=== PATIENT | male | born 1960 | race Caucasian/White ===

== ENCOUNTER 2021-02-12 22:58 | Outpatient (CLI) | payer SELFPAY | END 2021-02-12 22:59 | disposition critical access hospital (66) | LOC: EMS 22:58 | DX: R41.82 Altered mental status, unspecified (principal); R25.1 Tremor, unspecified | CPT/HCPCS: A0425; A0427 ==

== ENCOUNTER 2021-02-12 23:33 | Emergency (ER) | payer SELFPAY ==
--- NOTE | 2021-02-12 23:39 | ED Physician Documentation ---
PD HPI ALTERED MENTAL STATUS - Stated complaint Stated Complaint: HYPOTHERMIA,AMS - History obtained from History obtained from: Patient (AMS but contributes to HPI late in stay (see MDM)), EMS - History of Present Illness Timing - onset: Unknown Quality / character: Less responsive Contributing factors: No: Anticoagulated, Diabetic, Cancer, COPD, New medication, Recent med change, Recent illness, Recent injury, Intoxicated, Substance abuse, Known psych illness, Known dementia Basline status: Alert and oriented X 3, Ambulatory, Independent Recently seen: Not recently seen - Additional information Additional information: BIBA, patient arrives too altered to contribute to HPI/ROS. Per EMS, patient was found down in his driveway unconscious and minimally responsive. He was found by son and patients roommate. Unknown downtime. Medics noted patients pupils were 3mm bilaterally. They administered 0.4mg narcan without change but they note mild improvement in alertness with second dose of 0.4mg narcan. EMS notes patient is hypothermic with temperature of around 32 Review of Systems Unable to obtain: Unresponsive (non verbal, follows one or two simple commands but even then not consistently) PD PAST MEDICAL HISTORY - Past Medical History Past Medical History: Yes Other Past Medical History: patient says he has ankylosing spondylitis although not clear how this diagnosis was made - Present Medications Home Medications: Ambulatory Orders Medication Instructions Recorded Confirmed No Known Home Medications 02/13/21 02/13/21 - Allergies Allergies/Adverse Reactions: Allergies Allergy/AdvReac Type Severity Reaction Status Date / Time No Known Drug Allergies Allergy Verified 02/12/21 23:58 - Living Situation Living Arrangement: reports: At home PD ED PE NORMAL - Vitals Vital signs reviewed: Yes - General General: No acute distress, Well developed/nourished, Other (nonverbal, hypokinetic, follows only one or two very simple commands, and only occasionally) - HEENT HEENT: Atraumatic, PERRL, Other (dry mucous membranes) - Neck Neck: No bony TTP (this was assessed when he was awake and alert and oriented x 3, late in ED stay) - Cardiac Cardiac: No murmur, Strong equal pulses - Respiratory Respiratory: No respiratory distress - Abdomen Abdomen: Soft, Non tender, Non distended - Derm Derm: Normal color, Other (core is cool to touch, limbs are cold to touch and blanched) - Extremities Extremities: No deformity, No tenderness to palpate, Normal ROM s pain - Neuro Eye Opening: To Voice Motor: Obeys Commands (few simple commands) Verbal: None GCS Score: 10 PD ED PE EXPANDED - Cardiac Cardiac: Tachy, Regular Rhythm Results - Vitals Vitals: Oxygen O2 Source Room air - Labs Labs: Laboratory Tests 02/12/21 02/13/21 02/13/21 00:30 00:21 00:21 WBC 17.5 H RBC 3.80 L Hgb 12.0 L Hct 37.3 L MCV 98.2 H MCH 31.6 H MCHC 32.2 RDW 13.2 Plt Count 246 MPV 10.5 Neut # (Auto) Not Reportable Lymph # (Auto) Not Reportable [place] # (Auto) Not Reportable Eos # (Auto) Not Reportable Baso # (Auto) Not Reportable Absolute Nucleated RBC Not Reportable Total Counted 100 Band Neuts % (Manual) 9 Abnorm Lymph % (Manual) 0 Metamyelocytes % 1 H Myelocytes % 1 H Nucleated RBC % Not Reportable Neutrophils # (Manual) 13.7 H Lymphocytes # (Manual) 3.0 Monocytes # (Manual) 0.5 Eosinophils # (Manual) 0.0 Basophils # (Manual) 0.0 Nucleated RBCs 1 Differential Comment MANUAL DIFFERENTIAL Platelet Estimate NORMAL (130-450,000) RBC Morph Micro Appear NORMAL APPEARANCE Sodium 134 L Potassium 3.8 Chloride 101 Carbon Dioxide 11 L* Anion Gap 22.0 H BUN 11 Creatinine 0.9 Estimated GFR (MDRD) 87 L Glucose 243 H Calcium 8.4 L Total Bilirubin 1.0 AST 161 H ALT < 10 L Alkaline Phosphatase 183 H Total Creatine Kinase 232 CK-MB (CK-2) Total Protein 6.4 L Albumin 2.9 L Globulin 3.5 Albumin/Globulin Ratio 0.8 L Lipase 314 H TSH Urine Color YELLOW Urine Clarity CLEAR Urine pH 6.0 Ur Specific [place] 1.025 Urine Protein 30 H Urine Glucose (UA) 250 H Urine Ketones 40 H Urine Occult Blood LARGE H Urine Nitrite NEGATIVE Urine Bilirubin NEGATIVE Urine Urobilinogen 0.2 (NORMAL) Ur Leukocyte Esterase NEGATIVE Urine RBC 0-5 Urine WBC 0-3 Ur Squamous Epith Cells RARE Squamous Urine Bacteria None Seen Urine Casts 11-25 Hyaline Casts Urine Mucus Few Strands Ur Microscopic Review INDICATED Urine Culture Comments NOT INDICATED Salicylates < 6.0 Urine Opiates Screen NEGATIVE Ur Oxycodone Screen NEGATIVE Urine Methadone Screen NEGATIVE Ur Propoxyphene Screen NEGATIVE Acetaminophen < 10 L Ur Barbiturates Screen NEGATIVE Ur Tricyclics Screen NEGATIVE Ur Phencyclidine Scrn NEGATIVE Ur Amphetamine Screen NEGATIVE U Methamphetamines Scrn NEGATIVE U Benzodiazepines Scrn NEGATIVE Urine Cocaine Screen NEGATIVE U Cannabinoids Screen NEGATIVE Ethyl Alcohol < 5.0 Serum Ketones 02/13/21 02/13/21 02/13/21 00:21 00:21 01:15 WBC RBC Hgb Hct MCV MCH MCHC RDW Plt Count MPV Neut # (Auto) Lymph # (Auto) [place] # (Auto) Eos # (Auto) Baso # (Auto) Absolute Nucleated RBC Total Counted Band Neuts % (Manual) Abnorm Lymph % (Manual) Metamyelocytes % Myelocytes % Nucleated RBC % Neutrophils # (Manual) Lymphocytes # (Manual) Monocytes # (Manual) Eosinophils # (Manual) Basophils # (Manual) Nucleated RBCs Differential Comment Platelet Estimate RBC Morph Micro Appear Sodium Potassium Chloride Carbon Dioxide Anion Gap BUN Creatinine Estimated GFR (MDRD) Glucose Calcium Total Bilirubin AST ALT Alkaline Phosphatase Total Creatine Kinase CK-MB (CK-2) 5.0 Total Protein Albumin Globulin Albumin/Globulin Ratio Lipase TSH 6.20 H Urine Color Urine Clarity Urine pH Ur Specific [place] Urine Protein Urine Glucose (UA) Urine Ketones Urine Occult Blood Urine Nitrite Urine Bilirubin Urine Urobilinogen Ur Leukocyte Esterase Urine RBC Urine WBC Ur Squamous Epith Cells Urine Bacteria Urine Casts Urine Mucus Ur Microscopic Review Urine Culture Comments Salicylates Urine Opiates Screen Ur Oxycodone Screen Urine Methadone Screen Ur Propoxyphene Screen Acetaminophen Ur Barbiturates Screen Ur Tricyclics Screen Ur Phencyclidine Scrn Ur Amphetamine Screen U Methamphetamines Scrn U Benzodiazepines Scrn Urine Cocaine Screen U Cannabinoids Screen Ethyl Alcohol Serum Ketones NEGATIVE 02/13/21 02:54 WBC RBC Hgb Hct MCV MCH MCHC RDW Plt Count MPV Neut # (Auto) Lymph # (Auto) [place] # (Auto) Eos # (Auto) Baso # (Auto) Absolute Nucleated RBC Total Counted Band Neuts % (Manual) Abnorm Lymph % (Manual) Metamyelocytes % Myelocytes % Nucleated RBC % Neutrophils # (Manual) Lymphocytes # (Manual) Monocytes # (Manual) Eosinophils # (Manual) Basophils # (Manual) Nucleated RBCs Differential Comment Platelet Estimate RBC Morph Micro Appear Sodium 138 Potassium 3.5 Chloride 107 Carbon Dioxide 19 L Anion Gap 12.0 BUN 11 Creatinine 0.6 Estimated GFR (MDRD) 138 Glucose 125 H Calcium 7.7 L Total Bilirubin AST ALT Alkaline Phosphatase Total Creatine Kinase CK-MB (CK-2) Total Protein Albumin Globulin Albumin/Globulin Ratio Lipase TSH Urine Color Urine Clarity Urine pH Ur Specific [place] Urine Protein Urine Glucose (UA) Urine Ketones Urine Occult Blood Urine Nitrite Urine Bilirubin Urine Urobilinogen Ur Leukocyte Esterase Urine RBC Urine WBC Ur Squamous Epith Cells Urine Bacteria Urine Casts Urine Mucus Ur Microscopic Review Urine Culture Comments Salicylates Urine Opiates Screen Ur Oxycodone Screen Urine Methadone Screen Ur Propoxyphene Screen Acetaminophen Ur Barbiturates Screen Ur Tricyclics Screen Ur Phencyclidine Scrn Ur Amphetamine Screen U Methamphetamines Scrn U Benzodiazepines Scrn Urine Cocaine Screen U Cannabinoids Screen Ethyl Alcohol Serum Ketones - Rads (name of study) CT head Radiology: Prelim report reviewed, See rad report CT neck Radiology: Prelim report reviewed, See rad report PD MEDICAL DECISION MAKING - ED course Complexity details: reviewed results, re-evaluated patient, considered differential, d/w patient ED course: observed for several hours in ED. NORMAN ackerman applied shortly after arrival and warmed saline given IV. He gradually but steadily improved in mentation, correlating with increasing temperature (0.5 - 1.0 c / hour, as measured by bladder core thermometry. Once he was AAOx3, he tells me that he had pulled into his driveway with groceries. He says he has chronic back problems due to spondylitis (per patient), and that when he got out of his van, his back pain was so bad that he had to lie down on the driveway. He eventually got back up and decided he would take a bag of groceries in with him, but he again had too much back pain to ambulate and found that he had to again lie down on the driveway. He says he banged his cane on the side of his van to try to get the attention of his roommate, which eventually had the intended effect. He says the roommate could not help patient up and into the house, and so he called patients son who had at least a [address]. It is not clear who called 911 and when they called, but patients narrative suggests patient spent an inordinate amount of time in the cold on the driveway and this could account for the hypothermia and proportional AMS (which also improved in proportion to raising temperatures in ED). Patient denies any new pain (has chronic back pain). He expresses BLE weakness that is not new. He was able to slowly ambulate in ED prior to d/c. I offered to provide him with a walker, which he declines, says his walking stick acts as a cane and has been reliable thus far. I reviewed his course in the ED with him and reviewed test results. I instructed him to follow up with his primary care provider for reevaluation as well as to discuss his chronic back pain and BLE weakness. Departure - Departure Disposition: 01 Home, Self Care Clinical Impression: Hypothermia Qualifiers: Encounter type: initial encounter Qualified Code(s): T68.XXXA - Hypothermia, initial encounter Condition: Good Instructions: ED Hypothermia Tx Follow-Up: Celina Schwarz MD [Provider Admit Priv/Credential] - Within 1 week Comments: As we discussed, you should seek follow up for your ongoing back problems and lower extremity weakness. Discharge Date/Time: 02/13/21 08:45
[2021-02-12] MEDS ORDERED: SODIUM CHLORIDE 0.9% 1,000 ML IV STA (23:44)
[2021-02-13 00:30] LABS: BASOPHILS % (AUTO) 0.6 %; EOSINOPHILS % (AUTO) 0.3 %; HCT - HEMATOCRIT 37.3 % (42.0-52.0); LYMPHOCYTES % (AUTO) 14.1 %; MEAN CORPUSCULAR HEMOGLOBIN 31.6 pg (27.0-31.0); MEAN CORPUSCULAR HGB CONC 32.2 g/dL (32.0-36.0); MEAN CORPUSCULAR VOLUME 98.2 fL (80.0-94.0); MEAN PLATELET VOLUME 10.5 fL (7.4-11.4); MONOCYTES % (AUTO) 8.8 %; NEUTROPHILS % (AUTO) 72.9 %; PLT - PLATELET COUNT 246 10^3/uL (130-450); RED CELL DISTRIBUTION WIDTH 13.2 % (12.0-15.0); WHITE BLOOD COUNT 17.5 x10^3/uL (4.8-10.8)
[2021-02-13 00:36] LABS: MUDS CUTOFF CONCENTRATIONS CUTOFF CONC BELOW:
[2021-02-13 00:37] LABS: BILIRUBIN,URINE NEGATIVE (NEGATIVE); GLUCOSE, URINE (UA) 250 mg/dL (NEGATIVE); KETONES,URINE (UA) 40 mg/dL (NEGATIVE); LEUKOCYTE ESTERASE, URINE NEGATIVE (NEGATIVE); NITRITE,URINE NEGATIVE (NEGATIVE); OCCULT BLOOD,URINE LARGE (NEGATIVE); PROTEIN,URINE 30 mg/dL (NEGATIVE); UROBILINOGEN,URINE 0.2 (NORMAL) E.U./dL (NORMAL)
[2021-02-13 00:41] LABS: CLARITY,URINE CLEAR (CLEAR)
--- NOTE | 2021-02-13 00:42 | CT Report ---
PROCEDURE: HEAD WO INDICATIONS: found on ground, AMS TECHNIQUE: Noncontrast 4.5 mm thick angled axial sections acquired from the foramen magnum to the vertex. For r adiation dose reduction, the following was used: automated exposure control, adjustment of mA and/or kV according to patient size. COMPARISON: None. FINDINGS: Image quality: Excellent. CSF spaces: Basal cisterns are patent. No extra-axial fluid collections. Ventricles are normal in size and shape. Brain: No midline shift. No intracranial masses or hemorrhage. Mobley-white matter interface is norm al. Skull and face: Calvarium and visualized facial bones are intact, without suspicious lesions. Sinuses: Visualized sinuses and mastoids are clear. IMPRESSION: No CT evidence of acute intracranial process. Reviewed by: Zuleika Lyle MD on 02/13/2021 12:41 AM PST Approved by: Zuleika Lyle MD on 02/13/2021 12:41 AM PST Station ID: [id number]
[2021-02-13 00:43] LABS: ABNORMAL LYMPHS % (MANUAL) 0 %
[2021-02-13 00:44] LABS: ACETAMINOPHEN < 10 ug/mL (10-30); ALBUMIN 2.9 g/dL (3.2-5.5); ALBUMIN/GLOBULIN RATIO 0.8 (1.0-2.2); ALKALINE PHOSPHATASE 183 IU/L (42-121); AST ASPARTATE AMINOTRANSFERASE 161 IU/L (10-42); BUN - BLOOD UREA NITROGEN 11 mg/dL (6-20); CALCIUM 8.4 mg/dL (8.5-10.3); CHLORIDE 101 mmol/L (101-111); CK- CREATINE KINASE 232 IU/L (22-269); CREATININE 0.9 mg/dL (0.6-1.2); ETOH - ETHANOL < 5.0 mg/dL; GFR - MDRD 87 (>89); GLUCOSE 243 mg/dL (70-100); LIPASE 314 U/L (22-51); POTASSIUM 3.8 mmol/L (3.5-5.0); SALICYLATE < 6.0 mg/dL; SODIUM 134 mmol/L (135-145); TOTAL PROTEIN 6.4 g/dL (6.7-8.2)
[2021-02-13 00:45] LABS: ALT ALANINE AMINOTRANSFERASE < 10 IU/L (10-60)
[2021-02-13 00:46] LABS: CARBON DIOXIDE - CO2 11 mmol/L (21-32)
--- NOTE | 2021-02-13 00:47 | CT Report ---
PROCEDURE: CERVICAL SPINE WO INDICATIONS: found on ground, AMS TECHNIQUE: Noncontrast 3 mm thick sections acquired from the skull base to the T4 level. Sagittal and coronal r eformats were then constructed. For radiation dose reduction, the following was used: automated exp osure control, adjustment of mA and/or kV according to patient size. COMPARISON: None. FINDINGS: Image quality: Excellent. Bones: No fractures or dislocations. Degenerative disc height loss from C4 through C7. Atlantodental interval loss. Intact craniocervical junction. There is uncovertebral joint hypertrophy and endplate osteophytosis to a moderate degree causing severe bilateral foraminal narrowing from C4 through C7. The central canal is patent. Visualized superior ribs are intact. Soft tissues: Prevertebral soft tissues are normal in thickness. No paravertebral hematomas. No ap ical pneumothoraces. IMPRESSION: 1. No CT evidence of acute cervical spine injury. 2. Severe degenerative disc and endplate changes causing severe bilateral foraminal narrowing at mult iple levels. Reviewed by: Zuleika Lyle MD on 02/13/2021 12:45 AM PST Approved by: Zuleika Lyle MD on 02/13/2021 12:45 AM PST Station ID: [id number]
[2021-02-13 00:49] LABS: AMPHETAMINE SCREEN,URINE NEGATIVE (NEGATIVE); BARBITURATE SCREEN,UR NEGATIVE (NEGATIVE); BENZODIAZEPINES SCREEN, URINE NEGATIVE (NEGATIVE); COCAINE SCREEN URINE NEGATIVE (NEGATIVE); METHADONE SCREEN, URINE NEGATIVE (NEGATIVE); METHAMPHETAMINES SCREEN, URINE NEGATIVE (NEGATIVE); OPIATE SCREEN, URINE NEGATIVE (NEGATIVE); OXYCODONE SCREEN, URINE NEGATIVE (NEGATIVE); PROPOXYPHENE SCREEN, URINE NEGATIVE (NEGATIVE); THC CANNABINOID SCREEN, URINE NEGATIVE (NEGATIVE); TRICYCLIC ANTIDEPRESSANT,URINE NEGATIVE (NEGATIVE)
[2021-02-13 00:53] LABS: BACTERIA,URINE None Seen /HPF (None Seen); MUCUS,URINE Few Strands; RBC,URINE 0-5 /HPF (0-5); SQUAMOUS EPITHELIAL CELL,UR RARE Squamous (<= Few); WBC,URINE 0-3 /HPF (0-3)
[2021-02-13 00:59] LABS: BAND NEUTROPHILS % (MANUAL) 9 %; DIFFERENTIAL COMMENT MANUAL DIFFERENTIAL; LYMPHOCYTES % (MANUAL) 17 %; METAMYELOCYTES % (MANUAL) 1 %; MONOCYTES # (MANUAL) 0.5 10^3/uL (0.0-1.0); MYELOCYTES % (MANUAL) 1 %; NEUTROPHILS # (MANUAL) 13.7 10^3/uL (1.5-6.6); NUCLEATED RBC (MANUAL) 1 %; PLATELET ESTIMATE, MANUAL NORMAL (130-450,000) (NORMAL); RBC MORPHOLOGY (MULTIPLE) NORMAL APPEARANCE (NORMAL)
[2021-02-13] MEDS ORDERED: SODIUM CHLORIDE 0.9% 1,000 ML IV STA (01:10)
[2021-02-13 03:23] LABS: CALCIUM 7.7 mg/dL (8.5-10.3); CREATININE 0.6 mg/dL (0.6-1.2); POTASSIUM 3.5 mmol/L (3.5-5.0)
[2021-02-13 07:37] VITALS: BP 150/110
== END 2021-02-13 08:45 | disposition home or self-care (01) ==
LOC: EDUNIT# → ED 23:33
DX: T68.XXXA Hypothermia, initial encounter (principal); X31.XXXA Exposure to excessive natural cold, initial encounter; M54.9 Dorsalgia, unspecified; G89.29 Other chronic pain; M62.81 Muscle weakness (generalized)
CPT/HCPCS: 36415; 80048; 80053; 80306; 80307; 80320; 80329; 81001; 81003; 82009; 82550; 82553; 83690; 84443; 85025; 87086; 96360; 96361; 99282

== ENCOUNTER 2021-02-17 12:09 | Outpatient (CLI) | payer SELFPAY | END 2021-02-17 12:10 | disposition E | LOC: EMS 12:09 ==